=== PATIENT | female | born 1980 | race Caucasian/White ===

== ENCOUNTER 2017-04-03 14:32 | Emergency (ER) | payer BC, MEDICAID ==
[2017-04-03] MEDS ORDERED: Sodium Chloride 0.9% 1,000 ML IV ONE (14:57)
--- NOTE | 2017-04-03 14:59 | C.PDOC ---
History Of Present Illness 36-year-old female (A1), presents to the emergency department with complaints of vaginal bleed for 8 days. Patient reports she always has irregular menstrual cycle, and bleeding that lasts 7-13 days. She is complaining of lower abdominal cramping that is worse on left side. Patient states she was told in past that she has ovarian cysts. Patients last OBGYN appointment was 12/2015, and had a normal pap smear. States she has not had an ultrasound in several years. Patient is taking Tylenol with minimal relief. Time Seen by Provider: 04/03/17 14:42 Chief Complaint (Nursing): Female Genitourinary History Per: Patient History/Exam Limitations: no limitations Onset/Duration Of Symptoms: Days Current Symptoms Are (Timing): Still Present Severity: Moderate Quality Of Discomfort: "Pain" Past Medical History Reviewed: Historical Data, Nursing Documentation, Vital Signs Vital Signs: Last Vital Signs Temp 98.9 F 04/03/17 14:37 Pulse 91 H 04/03/17 14:37 Resp 16 04/03/17 14:37 BP 141/86 04/03/17 14:37 Pulse Ox 95 04/03/17 16:04 - Medical History PMH: No Chronic Diseases Surgical History: Cholecystectomy Family History: States: No Known Family Hx - Social History Hx Tobacco Use: No Hx Alcohol Use: No Hx Substance Use: No - Immunization History Hx Tetanus Toxoid Vaccination: No Hx Influenza Vaccination: No Hx Pneumococcal Vaccination: No Review Of Systems Except As Marked, All Systems Reviewed And Found Negative. Constitutional: Negative for: Fever, Chills Respiratory: Negative for: Shortness of Breath Gastrointestinal: Negative for: Nausea, Vomiting, Abdominal Pain, Diarrhea, Constipation Genitourinary: Positive for: Vaginal Bleeding, Pelvic Pain. Negative for: Dysuria Musculoskeletal: Negative for: Back Pain Skin: Negative for: Rash Neurological: Negative for: Weakness, Numbness, Headache Physical Exam - Physical Exam Appears: Non-toxic, No Acute Distress Skin: Normal Color, Warm, Dry, No Rash Head: Atraumatic, Normacephalic Eye(s): bilateral: Normal Inspection Nose: Normal Oral Mucosa: Moist Lips: Normal Appearing Neck: Normal ROM Cardiovascular: Rhythm Regular, No Murmur Respiratory: Normal Breath Sounds, No Accessory Muscle Use, No Rales, No Rhonchi , No Stridor, No Wheezing Gastrointestinal/Abdominal: Soft, Tenderness (mild, suprapubic.), No Guarding, No Rebound Back: Normal Inspection, No CVA Tenderness Extremity: Bilateral: Atraumatic, Normal Color And Temperature, Normal ROM Neurological/Psych: Oriented x3, Normal Speech Gait: Steady ED Course And Treatment - Laboratory Results Result Diagrams: 04/03/17 15:20 04/03/17 15:20 Lab Interpretation: No Acute Changes O2 Sat by Pulse Oximetry: 95 (room air) Pulse Ox Interpretation: Normal - CT Scan/US TRANSVAGINAL US Other Rad Studies (CT/US): Read By Radiologist, Radiology Report Reviewed CT/US Interpretation: Accession No. : [id number]. Patient Name / ID : JULIAN Jimenez / [id number]. Exam Date : 04/03/2017 15:05:21 ( Approved ). Study Comment : Sex / Age : F / 36Y. Creator : Trung Nava MD. Dictator : Trung Nava MD. 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 Approver2 : Report Date : 04/03/2017 15:50:11. My Comment : . HISTORY: vaginal bleeding, pelvic pain. COMPARISON: Abdomen and pelvis CT 03/14/2013. TECHNIQUE: Trans abdominal and transvaginal pelvic ultrasound was performed for a spontaneous vaginal bleeding and pelvic pain. FINDINGS: UTERUS : Measures 8.4 x 4.7 x 5.3 cm. Uterus appears grossly nonfocal but is mildly enlarged. It is anteverted in position. No fibroid or other mass lesion seen. ENDOMETRIUM: Measures 6.7 mm in diameter. Unremarkable. CERVIX: A tiny node nabothian cyst in the upper anterior cervix which is otherwise unremarkable. RIGHT OVARY: Measures 2.5 x 1.3 x 3.0 cm. No solid mass. Normal flow. LEFT OVARY: Measures 2.3 x 2.1 x 2.3 cm. No solid mass. Normal flow. FREE FLUID: No significant free fluid noted. OTHER FINDINGS: None. IMPRESSION: Unremarkable pelvic ultrasound. Medical Decision Making Medical Decision Making: Impression: Vaginal bleeding and pelvic pain Prior records reviewed: Notes and records from previous visits were reviewed. Patient seen in ER on 10/22 for abdominal pain, back pain and nausea. Plan: * BetaHCG, CMP * CBC * IVF, Tylenol * HCG/UA * US Pelvis * Reassess and Disposition Progress: US shows no fibroids, ovarian cysts or other abnormality. Labs reviewed with normal H/H, no leukocytosis or other significant findings. Patient reevaluated is resting comfortably in no distress. Vital signs stable. She is hemodynamically stable. I explained results to patient and provided copy of labs and US report. 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 Disposition Counseled Patient/Family Regarding: Studies Performed, Diagnosis, Need For Followup - Disposition [facility] Disposition: HOME/ ROUTINE Disposition Time: 16:11 Condition: STABLE Additional Instructions: Niurka laboratorios akil normales, sin anemia u otros laboratorios anormales Mora ultrasonido no muestra fibromas ni masa Por favor, siga con mora gineclogo para ángela evaluacin ms detallada de la hemorragia irregular [employer] cualquier analgsico Tylenol o Advil para el dolor Instructions: Dysfunctional Uterine Bleeding (ED) Forms: Work/School/Gym Excuse Print Language: DANISH - POA Present On Arrival: None - Clinical Impression Clinical Impression: DUB (dysfunctional uterine bleeding) - Scribe Statement The provider has reviewed the documentation as recorded by the Scribe (Radha Rutledge) All medical record entries made by the Scribe were at my direction and personally dictated by me. I have reviewed the chart and agree that the record accurately reflects my personal performance of the history, physical exam, medical decision making, and the department course for this patient. I have also personally directed, reviewed, and agree with the discharge instructions and disposition.
[2017-04-03] MEDS ORDERED: Sodium Chloride 0.9% 1,000 ML ONE (15:00)
[2017-04-03 15:28] LABS: BASO % 0.4 % (0.0-2.0); EOS # 0.2 K/uL (0.0-0.7); EOS % 1.8 % (0.0-4.0); HEMATOCRIT 34.7 % (34.0-47.0); LYMPH # 2.5 K/uL (1.0-4.3); LYMPH % 27.5 % (20.0-40.0); MEAN CELL VOLUME 81.5 fL (81.0-99.0); MEAN CORPUSCULAR HEMOGLOBIN 27.9 pg (27.0-31.0); MEAN CORPUSCULAR HGB CONC 34.2 g/dL (33.0-37.0); MEAN PLATELET VOLUME 8.5 fL (7.2-11.7); MONO # 0.6 K/uL (0.0-0.8); MONO % 6.9 % (0.0-10.0); NRBC % 0.1 % (0.0-2.0); RED CELL DISTRIBUTION WIDTH 13.3 % (11.5-14.5); WHITE BLOOD COUNT 9.2 K/uL (4.8-10.8)
[2017-04-03 15:33] LABS: URINE BILIRUBIN NEGATIVE (NEGATIVE); URINE BLOOD 2+ (NEGATIVE); URINE COLOR Yellow (YELLOW); URINE GLUCOSE (UA) NORMAL (Normal); URINE KETONE NEGATIVE (NEGATIVE); URINE LEUKOCYTE ESTERASE NEG Leu/uL (Negative); URINE PROTEIN NEGATIVE (NEGATIVE); URINE UROBILINOGEN NORMAL mg/dL (0.2-1.0); WBC URINE 1 /hpf (0-5)
[2017-04-03 15:37] LABS: CHLORIDE 103 mmol/L (98-107)
[2017-04-03 15:38] LABS: POTASSIUM 4.3 mmol/L (3.6-5.2); SODIUM 141 mmol/L (132-148)
[2017-04-03 15:40] LABS: ALB/GLOB RATIO 1.1 (1.0-2.1); ALKALINE PHOSPHATASE 83 U/L (38-126); AST/SGOT 23 U/L (14-36); BILIRUBIN,TOTAL 0.4 mg/dL (0.2-1.3); BLOOD UREA NITROGEN 12 mg/dL (7-17); CARBON DIOXIDE 25 mmol/L (22-30); GFR AFRICAN-AMERICAN > 60; GLUCOSE,RANDOM 90 mg/dL (65-105); TOTAL PROTEIN 7.8 g/dL (6.3-8.3)
[2017-04-03 15:41] LABS: ALT/SGPT 27 U/L (9-52); CALCIUM 9.7 mg/dl (8.6-10.4)
[2017-04-03 15:48] LABS: RBC URINE 3 /hpf (0-3); URINE BACTERIA OCC (<OCC)
--- NOTE | 2017-04-03 15:51 | US ---
HISTORY: vaginal bleeding, pelvic pain COMPARISON: Abdomen and pelvis CT 03/14/2013 TECHNIQUE: Trans abdominal and transvaginal pelvic ultrasound was performed for a spontaneous vaginal bleeding and pelvic pain. FINDINGS: UTERUS: Measures 8.4 x 4.7 x 5.3 cm. Uterus appears grossly nonfocal but is mildly enlarged. It is anteverted in position. No fibroid or other mass lesion seen. ENDOMETRIUM: Measures 6.7 mm in diameter. Unremarkable. CERVIX: A tiny node nabothian cyst in the upper anterior cervix which is otherwise unremarkable. RIGHT OVARY: Measures 2.5 x 1.3 x 3.0 cm. No solid mass. Normal flow. LEFT OVARY: Measures 2.3 x 2.1 x 2.3 cm. No solid mass. Normal flow. FREE FLUID: No significant free fluid noted. OTHER FINDINGS: None. IMPRESSION: Unremarkable pelvic ultrasound.
[2017-04-03 16:24] VITALS: BP 127/81; PULSE 72; RESP 18; TEMP 98.3; O2SAT 100
== END 2017-04-03 16:25 | disposition home or self-care (01) ==
LOC: C.ER 14:32
DX: N93.8 Other specified abnormal uterine and vaginal bleeding (principal)
CPT/HCPCS: 76830; 80053; 81001; 84702; 84703; 85025; 96360; 99284; J7040

== ENCOUNTER 2017-08-21 11:54 | Emergency (ER) | payer OTHER, BC ==
[2017-08-21 12:01] VITALS: BP 129/82; PULSE 81; RESP 18; TEMP 98.2; O2SAT 99
[2017-08-21] MEDS ORDERED: Naproxen 550 mg Tab PO STA (12:26)
[2017-08-21] MEDS ORDERED: Naproxen 550 mg Tab PO ONE (12:44)
--- NOTE | 2017-08-21 12:53 | C.PDOC ---
History Of Present Illness 36 y/o female presents to the ER complaining of right ankle pain which has been present for 1 week. Patient reports that she was cleaning at work when she slipped and twisted her right ankle. Patient states that she has been continuing to work since the accident but the pain persists. Patient denies any trauma and other medical complaints. No change in sensation. Pain aggravated by ambulation. Time Seen by Provider: 08/21/17 12:03 Chief Complaint (Nursing): Lower Extremity Problem/Injury History Per: Patient History/Exam Limitations: no limitations Onset/Duration Of Symptoms: Days Current Symptoms Are (Timing): Still Present Severity: Moderate Past Medical History Reviewed: Historical Data, Nursing Documentation, Vital Signs Vital Signs: Last Vital Signs Temp 98.2 F 08/21/17 12:00 Pulse 81 08/21/17 12:00 Resp 18 08/21/17 12:00 BP 129/82 08/21/17 12:00 Pulse Ox 99 08/21/17 15:54 - Medical History PMH: No Chronic Diseases Surgical History: Cholecystectomy Family History: States: No Known Family Hx - Social History Hx Tobacco Use: No Hx Alcohol Use: No Hx Substance Use: No - Immunization History Hx Tetanus Toxoid Vaccination: No Hx Influenza Vaccination: No Hx Pneumococcal Vaccination: No Review Of Systems Except As Marked, All Systems Reviewed And Found Negative. Musculoskeletal: Positive for: Other (right ankle pain) Neurological: Negative for: Weakness, Numbness Physical Exam - Physical Exam Appears: Non-toxic, No Acute Distress Skin: Normal Color, Warm Head: Atraumatic, Normacephalic Eye(s): bilateral: Normal Inspection, EOMI Nose: Normal Oral Mucosa: Moist Neck: Normal ROM, Supple Chest: Symmetrical Respiratory: No Accessory Muscle Use Extremity: Normal ROM, Tenderness (tenderness to the lateral aspect of the right ankle), No Calf Tenderness, Capillary Refill (< 2 sec ), No Swelling Pulses: Left Dorsalis Pedis: Normal, Right Dorsalis Pedis: Normal Neurological/Psych: Oriented x3, Normal Speech, Normal Cognition, Normal Motor, Normal Sensation ED Course And Treatment O2 Sat by Pulse Oximetry: 99 (RA) Pulse Ox Interpretation: Normal - Other Rad No standard instances X-Ray: Viewed By Me, Read By Radiologist Interpretation: PROCEDURE: Right Ankle Radiographs. HISTORY: trauma. COMPARISON: None available. FINDINGS: BONES: No acute displaced fracture. JOINTS: No dislocation. SOFT TISSUES: Unremarkable. No evidence of radiopaque foreign body. OTHER FINDINGS: None. IMPRESSION: No acute displaced fracture, dislocation, or significant joint effusion identified. If symptoms persist or if there is clinical concern, x-ray follow-up in 7-10 days should be considered. Progress Note: X-Ray - Right Ankle ordered. Naproxen given to patient. Air cast applied by critical care technician. Instructed RICE and follow up with PMD / ortho in 1-2 days. Disposition - Disposition Referrals: Wendy Merrill MD [Staff Provider] - Disposition: HOME/ ROUTINE Disposition Time: 13:07 Condition: STABLE Additional Instructions: Rest, ice and elevate the area. Follow up with your bone doctor in 1-2 days. 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 - Scribe Statement The provider has reviewed the documentation as recorded by the Jami Sims Provider Attestation All medical record entries made by the Jami were at my direction and personally dictated by me. I have reviewed the chart and agree that the record accurately reflects my personal performance of the history, physical exam, medical decision making, and the department course for this patient. I have also personally directed, reviewed, and agree with the discharge instructions and disposition.
== END 2017-08-21 13:13 | disposition home or self-care (01) ==
LOC: C.ER 11:54
DX: S93.401A Sprain of unspecified ligament of right ankle, initial encounter (principal); W01.0XXA Fall on same level from slipping, tripping and stumbling without subsequent striking against object, initial encounter; Y92.89 Other specified places as the place of occurrence of the external cause; Y99.0 Civilian activity done for income or pay

== ENCOUNTER 2017-09-25 11:27 | Emergency (ER) | payer OTHER, BC ==
--- NOTE | 2017-09-25 12:09 | C.PDOC ---
History Of Present Illness 36 y/o F p/w back pain x 1 day. Patient has had this back pain since accident 1.5 months ago with exacerbation today. Since accident, patient has followed up and had MRI few days ago which shows herniated disc. She is on Tramadol, acetaminophen, ibuprofen. Denies new pain, fever, urinary or bowel incontinence or retention, numbness, or weakness. Time Seen by Provider: 09/25/17 11:52 Chief Complaint (Nursing): Back Pain Past Medical History Vital Signs: Last Vital Signs Temp 98.7 F 09/25/17 11:56 Pulse 106 H 09/25/17 11:56 Resp 18 09/25/17 11:56 BP 164/98 H 09/25/17 11:56 Pulse Ox 98 09/25/17 11:56 Surgical History: Cholecystectomy Family History: States: Unknown Family Hx - Social History Hx Tobacco Use: No Hx Alcohol Use: No Hx Substance Use: No - Immunization History Hx Tetanus Toxoid Vaccination: No Hx Influenza Vaccination: No Hx Pneumococcal Vaccination: No Review Of Systems Except As Marked, All Systems Reviewed And Found Negative. Constitutional: Negative for: Fever Respiratory: Negative for: Shortness of Breath Physical Exam - Physical Exam Additional Physical Exam Comments: Gen: In some distress secondary to pain Head: NC Eyes: No icterus Neck: No midline tenderness CV: Radial pulses 2+ bilaterally Lungs: No accessory muscle use Extremities: No swelling Neuro: Moves all extremities. Sensation to light touch intact in bilateral legs. Medical Decision Making Medical Decision Making: Discussed patient's need for further follow up with Spine, pain management. In absence of new symptoms, will treat for pain and discharge. Disposition - Disposition Disposition: HOME/ ROUTINE Disposition Time: 12:09 Condition: STABLE Instructions: Herniated Disc Forms: [employer] (Spanish) - Clinical Impression Clinical Impression: Back pain
[2017-09-25 12:24] VITALS: BP 164/98; PULSE 106; RESP 18; TEMP 98.7; O2SAT 98
== END 2017-09-25 12:26 | disposition home or self-care (01) ==
LOC: C.ER 11:27
DX: M54.9 Dorsalgia, unspecified (principal)
CPT/HCPCS: 96372; 99283; J1885